=== PATIENT | male | born 1960 | race Caucasian/White ===

== ENCOUNTER 2022-07-27 07:13 | Outpatient (CLI) | payer BC ==
[~2022-07-27] VITALS: Ht 182.9 cm; Wt 95.5 kg
[2022-07-27] MEDS ORDERED: SIMV10TA26 PO (12:37)
[2022-07-27] MEDS ORDERED: CHOL200012 PO (12:37)
[2022-07-27] MEDS ORDERED: LYSI100014 PO (12:37)
[2022-07-27] MEDS ORDERED: CLON0.5T4 PO ×2 (12:37)
[2022-07-27] MEDS ORDERED: BUSP30TA2 PO (12:37)
[2022-07-27] MEDS ORDERED: OMEP20TA56 PO (12:37)
[2022-07-27] MEDS ORDERED: DOCU100C37 PO (12:37)
[2022-07-27] MEDS ORDERED: VENL225T PO (12:37)
[2022-07-27] MEDS ORDERED: PITO17.8 PO (12:37)
[2022-07-27] MEDS ORDERED: DIPH25CA79 PO (12:37)
[2022-07-27] MEDS ORDERED: ALPR0.5T7 PO (12:37)
[2022-07-27] MEDS ORDERED: MULT-1136 PO (12:37)
== END 2022-07-27 13:06 | disposition home or self-care (01) ==
LOC: PREOP 07:13
PROVIDERS: ATTEND Specialist
DX: Z01.818 Encounter for other preprocedural examination (principal)

== ENCOUNTER 2022-08-06 10:21 | Day surgery (SDC) | payer BC ==
[~2022-08-06] VITALS: Ht 182.9 cm; Wt 100.2 kg
[2022-08-06] VITALS (9 sets, daily range): BP systolic 102–143; BP diastolic 68–81
[~2022-08-06 10:21] MED LIST: ALPR0.5T7 PO; BUSP30TA2 PO; CHOL200012 PO; CLON0.5T4 PO; DIPH25CA79 PO; DOCU100C37 PO; LYSI100014 PO; MULT-1136 PO; OMEP20TA56 PO; PITO17.8 PO; SIMV10TA26 PO; VENL225T PO
[2022-08-06] MEDS ORDERED: CLINDAMYCIN 600 MG/50 ML IVPB 50 ML IV ONE (10:45)
[2022-08-06] MEDS ORDERED: ROPIVACAINE 5MG/ML 30ML VIAL ONE (10:47)
[2022-08-06] MEDS ORDERED: LIDOCAINE/EPI 1%-1:100,000 (XYLOCAINE) 20ML ONE ×2 (10:48→13:04)
[2022-08-06] MEDS ORDERED: CLON0.5T4 PO (10:49)
[2022-08-06] MEDS: LACTATED RINGERS 1,000 ML IV PRN ×3 (11:00→16:31)
[2022-08-06] MEDS ORDERED: ONDANSETRON 4 MG/2 ML (SDV) Z0FRAN ONE (11:45)
[2022-08-06] MEDS ORDERED: fentaNYL INJ 100 MCG/2 ML AMP ONE (11:45)
[2022-08-06] MEDS ORDERED: GLYCOPYRROLATE 0.2 MG/ML (ROBINUL) 2 ML VIAL ONE ×2 (11:45→18:20)
[2022-08-06] MEDS ORDERED: LIDOCAINE PF 2% 5 ML (XYLOCAINE) VIAL ONE (11:45)
[2022-08-06] MEDS ORDERED: proPOfol 200 MG/20 ML (DIPRIVAN) VIAL IV ONE (11:45)
[2022-08-06] MEDS ORDERED: NEOSTIGMINE (BLOXIVERZ ) 1 MG/1ML 10 ML VIAL ONE (11:46)
[2022-08-06] MEDS: PHENYLEPHRINE 0.25% NASAL SPR (NEO-SYNEPHRINE) 15 ML NS PRN (11:59)
--- NOTE | 2022-08-06 12:29 | History & Physical-Surgical ---
HPO-Surgical History of Present Illness Chief Complaint: maxilla and mandibular hyperplasia, osap,deviatedseptum, turbinete hypertrophy Diagnosis/Surgical Indication: MAXILLARY HYPERPLASIA, MANDIBULAR HYPOPLASIA Procedure: MAXILLARY [place] 1-2 PIECE AND MANDIBULAR BILATERAL SAGGITAL SPLIT RAMUS OSTEOTOMY Date of Surgery: Aug 06, 2022 Allergies and Home Medications Allergies Coded Allergies: prazosin (Verified Allergy, Severe, VERTIGO, 07/27/22) armodafinil (Verified Allergy, Intermediate, Rash, 07/27/22) cefaclor (Verified Allergy, Intermediate, Rash, 07/27/22) erythromycin base (Verified Allergy, Intermediate, Rash, 07/27/22) modafinil (Verified Allergy, Intermediate, Rash, 07/27/22) tetracycline (Verified Allergy, Intermediate, Rash, 07/27/22) Patient Home Medication List Home Medication List Reviewed: Yes Alprazolam (Alprazolam) 0.5 Mg Tablet, 0.5 MG PO NEEDED, (Reported) Entered as Reported by: Briseida Davidson on 07/27/22 1237 Buspirone HCl (Buspirone HCl) 30 Mg Tablet, 30 MG PO BID, (Reported) Entered as Reported by: Briseida Davidson on 07/27/22 1237 Cholecalciferol (Vitamin D3) (D3-2000) 50 Mcg (2000 Unit) Capsule, 50 MCG PO DAILY, (Reported) Entered as Reported by: Briseida Davidson on 07/27/22 1237 Clonazepam (Clonazepam) 0.5 Mg Tablet, 0.5 MG PO morning, (Reported) Entered as Reported by: Briseida Davidson on 07/27/22 1237 Clonazepam (Clonazepam) 0.5 Mg Tablet, 0.25 MG PO HS, (Reported) Entered as Reported by: JAVED MCLEOD on 08/06/22 1049 Last Action: New Order Diphenhydramine HCl (Benadryl) 25 Mg Capsule, 2 TAB PO HS, (Reported) Entered as Reported by: Briseida Davidson on 07/27/22 1237 Docusate Sodium (Docusate Sodium) 100 Mg Capsule, 100 MG PO DAILY, (Reported) Entered as Reported by: Briseida Davidson on 07/27/22 1237 Lysine (Lysine) 1,000 Mg Tablet, 1,000 MG PO NEEDED, (Reported) Entered as Reported by: Briseida Davidson on 07/27/221236 Multivitamin (Multivitamin) 1 Each Tablet, 1 EACH PO DAILY, (Reported) Entered as Reported by: Briseida Davidson on 07/27/221236 Omeprazole (Omeprazole) 20 Mg Tablet.dr, 20 MG PO BID WITH MEALS, (Reported) Entered as Reported by: Briseida Davidson on 07/27/221236 Pitolisant HCl (Wakix) 17.8 Mg Tablet, 2 TAB PO DAILY, (Reported) Entered as Reported by: Briseida Davidson on 07/27/221236 Simvastatin (Simvastatin) 10 Mg Tablet, 10 MG PO HS, (Reported) Entered as Reported by: Briseida Davidson on 07/27/221236 Venlafaxine HCl (Venlafaxine HCl ER) 225 Mg Tab.er.24, 225 MG PO DAILY, ( Reported) Entered as Reported by: Briseida Davidson on 07/27/221236 Discontinued Medications Clonazepam (Clonazepam) 0.5 Mg Tablet, 0.5 TAB PO HS, (Reported) Discontinued Reason: No Longer Taking Entered as Reported by: Briseida Davidson on 07/27/221236 Last Action: Discontinued Past Qgmrsqw-Ioprsn-Gqxcdz Hx Patient Social History Alcohol Beverage of Choice: Beer, [place] Smoking Status: Never a Smoker 2nd Hand Smoke Exposure: No Recent Hopitalizations: No Immunizations Up To Date Tetanus Booster (TDap): More than 5yrs Date of Influenza Vaccine: Nov 28, 2021 Seasonal Allergies Seasonal Allergies: Yes Surgeries Yes (L KNEE, CARPERL TUNNEL, CP3, PROSTATE SURGERY, SKIN CA REMOVAL X2) Orthopedic, Tonsillectomy, Vasectomy Respiratory Yes Currently Using CPAP: Yes Cardiovascular Yes High Cholesterol Neurological No Reproductive System Sexually Transmitted Disease: No Genitourinary Yes Prostate Problems Gastrointestinal Yes Gastroesophageal Reflux, Hiatal Hernia Musculoskeletal Yes (TORN MENISCUS) Endocrine History of Endocrine Disorders: No HEENT History of HEENT Disorders: Yes (DEVIATED SEPTUM TO LEFT SIDE) HEENT Disorders: Tonsilitis Loss of Vision: Denies Hearing Impairment: Denies Cancer Yes Skin Psychosocial History of Psychiatric Problem: Yes Behavioral Health Disorders: Anxiety Integumentary History of Skin or Integumenta: No Blood Transfusions History of Blood Disorders: No Adverse Reaction to a Blood Tr: No Exam Vital Signs Vital Signs 08/06/22 10:40 Temp 36.4 Pulse 76 Resp 20 B/P (MAP) 135/81 (99) Pulse Ox 99 O2 Delivery Room Air Capillary Refill : RICKI HESTER DDS Aug 06, 2022 12:29
[2022-08-06] MEDS ORDERED: LIDOCAINE/EPI 1%-1:100,000 (XYLOCAINE) 20ML INJ ONE ×2 (13:00→19:51)
[2022-08-06] MEDS ORDERED: ROPIVACAINE 5MG/ML 30ML VIAL INJ ONE ×2 (13:01→19:52)
[2022-08-06] MEDS ORDERED: PHENYLEPHRINE 0.5% NASAL SPR (NEO-SYNEPHRINE) REG ONE ×2 (13:04→13:13)
[2022-08-06] MEDS ORDERED: BSS 15 ML ONE (13:04)
[2022-08-06] MEDS ORDERED: BACITRACIN OINTMENT 28 GM TUBE ONE ×2 (13:04→18:54)
[2022-08-06] MEDS ORDERED: BACITRACIN OINTMENT 28 GM TUBE TOP ONE (13:13)
[2022-08-06] MEDS ORDERED: BSS 15 ML IO ONE (13:14)
[2022-08-06] MEDS ORDERED: SEVOFLURANE (ULTANE) 15 ML INHAL SOLN ONE ×4 (13:23→19:02)
[2022-08-06] MEDS ORDERED: PHENYLEPHRINE 100 MCG/ML 10 ML (ANESTHESIA) SYR ONE ×2 (14:42→17:04)
[2022-08-06] MEDS ORDERED: HYDROmorphone 2 MG/ML VIAL (DILAUDID) ONE (14:52)
[2022-08-06] MEDS ORDERED: ROCURONIUM 50 MG/5 ML (ZEMURON) VIAL IV ONE ×2 (16:45→17:31)
[2022-08-06] MEDS ORDERED: SUGAMMADEX 500 MG/5 ML VIAL (BRIDION) IV ONE (18:19)
[2022-08-06] MEDS ORDERED: CLINDAMYCIN 300 MG/50 ML IVPB 50 ML IV SCH (19:45)
[2022-08-06] MEDS: HYDROcodone/APAP 7.5MG-325 MG/15 ML (LORTAB) UDC PO PRN (22:00)
[2022-08-06] MEDS: CLINDAMYCIN 600 MG/50 ML IVPB 50 ML IV SCH (22:10)
[2022-08-06] MEDS: LACTATED RINGERS 1,000 ML IV SCH (23:22)
[2022-08-07] MEDS: HYDROcodone/APAP 7.5MG-325 MG/15 ML (LORTAB) UDC PO PRN ×5 (01:37→18:00)
[2022-08-07 03:45] VITALS: BP 125/65
[2022-08-07] MEDS: PHENYLEPHRINE 0.25% NASAL SPR (NEO-SYNEPHRINE) 15 ML NS PRN (05:06)
[2022-08-07] MEDS: CLINDAMYCIN 600 MG/50 ML IVPB 50 ML IV SCH ×2 (05:38→13:27)
[2022-08-07 07:10] VITALS: BP 116/65
[2022-08-07] MEDS: LACTATED RINGERS 1,000 ML IV SCH ×2 (07:51→16:34)
[2022-08-07 11:15] VITALS: BP 133/81
--- NOTE | 2022-08-07 14:32 | Anesthesia-General Post-Op ---
General Patient Condition Mental Status/LOC: Same as Preop Cardiovascular: Satisfactory Nausea/Vomiting: Absent Respiratory: Satisfactory Pain: Controlled Complications: Absent Post Op Complications Complications None Follow Up Care/Instructions Patient Instructions None needed. Anesthesia/Patient Condition Patient Condition Patient was just seen and he is doing well. He does complain of swelling which is to be expected and has stable vital signs, no apparent adverse anesthesia problems. No complications reported per nursing. JONATHAN DAVID DO Aug 07, 2022 14:32
[2022-08-07] MEDS ORDERED: OMEP20CA18 PO (14:42)
[2022-08-07] MEDS ORDERED: VENL75CA93 PO (14:42)
[2022-08-07] MEDS ORDERED: PITO17.8 PO (14:42)
[2022-08-07] MEDS ORDERED: VENL150T PO (14:42)
[2022-08-07] MEDS ORDERED: SIMV40TA25 PO (14:42)
[2022-08-07 15:24] VITALS: BP 135/56
[2022-08-07 18:00] VITALS: BP 135/56
--- NOTE | 2022-09-05 23:55 | OPERATIVE REPORT ---
DATE OF SERVICE: 08/06/2022 SURGEON: Ricki Hester DDS WREATH MACHINE TENDER: Anne Marie Hester. 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 POSTOPERATIVE DIAGNOSIS. 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 PROCEDURES PERFORMED: 1. Bilateral sagittal split ramus osteotomy as well as a [place] advancement, both were advancements. 2. Septoplasty, both bony and cartilaginous as well as bilateral turbinectomy. ANESTHESIA: General endotracheal. BLOOD LOSS: 500 mL of crystalloid. INTRAVENOUS FLUIDS: 2.4 liters of crystalloid. URINE OUTPUT: 150 mL. HISTORY OF PRESENT ILLNESS AND INDICATIONS FOR INDICATIONS: The patient is a 61-year-old white male who presents upon referral from his general dentist after being evaluated. 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 He also suffers from sleep apnea. He has had a hyoid suspension, currently uses a CPAP machine. After speaking extensively with the patient, I advised him that he would benefit from having a maxillary advancement as well as a mandibular advancement and I could decrease his need for his CPAP machine as well as increase his facial balance, improve his mastication inflammation. Also, prior to the surgery when we were speaking, he also mentioned he had a deviated nasal septum. Upon reviewing his films and scans, it was indeed the case as well as severe bilateral turbinate hypertrophy. I also spoke with him and advised him why we were doing his [place] that we would also fix his deviated nasal septum and also perform a turbinectomy. At this point, we would also allow him multiple opportunities for questions. These were answered and then he elected to have surgery at the earliest opportune time at [facility]. DESCRIPTION OF PROCEDURE: The patient was taken to the operating room and placed on the operatory table. The appropriate monitors were placed and anesthesia was induced via nasotracheal intubation without difficulty. Once this was secured, the surgeon left the room, scrubbed, returned, donned sterile gowns and gloves and then prepped and draped the patient in the usual standard and sterile fashion. After this, I deposited local anesthesia in and around the bilateral mandibular blocks as well as along the external oblique ridge, also infiltrated in the anterior maxillary wall. After this, I was able to use a Bovie electrocautery and then excise through the skin mucosa and then periosteum along the external oblique ridge bilaterally and carried on to approximately just past the mental foramen bilaterally. Then, a subperiosteal dissection was completed, exposing the mental foramen, the external oblique ridge up to the ascending ramus and then medially starting on the superior aspect almost at the sigmoid notch and then was able to elevate the tissue on the medial aspect of the mandible until I was able to identify the lingula and the entrance of the mandibular canal. After this, I used a reciprocating saw and made a medial cut stopping at approximately the level of the lateral cortex extend this down along the external oblique ridge until it cheek out and then used a handpiece with a cross cutting bur to excise through the lateral cortex and the inferior border. This was completed bilaterally. I checked to make sure the cuts were complete and using a periosteal elevator started to separate the segments just making sure that they were indeed split and would not have pathologic fracture, but did leave the mandible intact. We turned our attention to the maxilla and then using Bovie electrocautery excise through the mucosa of the anterior maxillary wall, performed the subperiosteal dissection exposing the buttress, piriform rim and anterior maxillary wall up to the foramen of [ ] bilaterally. After this, I used a periosteal elevator to elevate the mucosa and the periosteum on the floor of the nose and the lateral wall of the nasal cavity and then used a nasal septal osteotome to excise the bony septum and cartilaginous septum along the mid palatal crest of the maxilla. After this, I then used the reciprocating saw to excise through the anterior maxillary wall bilaterally. After making our measurements 25 mm above the cusp of the first molar and a 35 mm above the cusp of the canine bilaterally. This was completed without difficulty. We then used a curved osteotome and performed our osteotomies posterior to the maxillary buttress down through the maxillary tuberosity. After this, we used an osteotome to make our osteotomy of the medial sinus wall over the lateral wall of the piriform rim. This was stopped approximately 30 mm from the anterior portion of this. I make sure we did not excise or damage the greater palatine artery. After this, I was able to mobilize and complete a down fracture without difficulty. We removed any interferences with a rongeur. I removed portion of the mid palatal crest with a handpiece. We made sure that our cuts are down fracture was completed through the tuberosity without difficulty. There was no excessive hemorrhage. I was able to mobilize the maxilla and then placed him into his prefabricated splint where he was then placed in intermaxillary fixation and we advanced approximately 8 mm. Then, 2 plates were adapted and fitted in the piriform rim and the maxillary buttress. Prior to fixating the maxilla, I was able to identify the deviated bony septum and this was fractured and then aligned anatomically at the mid palatal crest. The cartilage also was distorted to the right side and this was excised leaving a 1 cm columellar strut and dorsal strut. After this, I then used diathermy to excise and cauterize the turbinates intranasally bilaterally. After this was completed, we then placed 4 screws for each of the plates, two in the proximal segment and two in the distal segment of the maxilla. After this, we turned our attention to the mandible and using a periosteal elevator and osteotome, we were able to separate the mandible without difficulty. With a predicted fracture, the neurovascular bundle was visualized and retained in the proximal segment. Once we were able to mobilize mandible completely, removed the intermediate splint and placed into the final splint and placed in intermaxillary fixation and then using a transbuccal approach, used a 15 blade to make an incision through the skin just with a stab incision, I then used trocar to gain access to the lateral aspect of the mandible, placed our proximal segments of the mandible in alignment. We made sure we had the predicted advancement and then placed 3 screws posterior and the angle above the inferior alveolar nerve. After this, we removed him from intermaxillary fixation, make sure that occlusion was as predicted and then closed with 4-0 Vicryl for the mandibular incision bilaterally in the anterior maxilla, I placed an alar cinch suture placed into the anterior nasal spine and then closed with 3-0 chromic gut in a running fashion. I also did a small V-Y closure with 3-0 chromic gut as well. This completed our procedure. He was allowed to emerge from his general anesthesia. He was then extubated in the operating room and transported to the recovery room in satisfactory and stable vital signs, breathing spontaneously with pulse ox of 99%. Job ID: [id number] DocumentID: [id number] Dictated Date: 09/05/2022 15:58:52 Application Specialist Date: 09/05/2022 23:52:00 Dictated By: RICKI HESTER DDS
== END 2022-08-07 18:30 ==
LOC: SDC 10:21 → 4TH 20:15 → SDC 08-07 18:30
PROVIDERS: ATTEND Specialist
DX: M26.02 Maxillary hypoplasia (principal); M26.04 Mandibular hypoplasia; J34.2 Deviated nasal septum; J34.3 Hypertrophy of nasal turbinates; M26.19 Other specified anomalies of jaw-cranial base relationship
CPT/HCPCS: 21141; 21195; 30140; 30520; 87081; C1713 ×5